=== PATIENT | male | born 1975 | race Caucasian/White ===

== ENCOUNTER 2019-04-06 17:27 | Emergency (ER) | payer SELFPAY ==
[2019-04-06 17:27] VITALS: BP 111/71; PULSE 65; RESP 18; TEMP 36.6; O2SAT 98; BMI 23.6
[2019-04-06] MEDS: Diphth,Pertuss(Acell),Tet Vac 0.5 ML Vial IM (19:05)
--- NOTE | 2019-04-06 19:38 | ED.VIS.UPPEX ---
History of Present Illness Chief Complaint: Laceration Informant: Patient Occurred: Today Mechanism/Context: Incised Current Severity: Mild Maximum Severity: Moderate Worsened by: Not applicable Relieved by: Nothing Associated Symptoms: Parasthesia - Numbness left thumb. Negative for: Weakness, Loss of Funtion Narrative: Patient is a 44-year-old [id number] male presents with laceration volar surface of the left wrist. He, is a numbness in left thumb. Immunizations uncertain. He has no antibiotic allergies. Tetanus Immunization: Unknown Prior similar symptoms: No Recent Illness/Hospitalization: No - Past Medical History (1) No significant past medical history Status: Acute Past Medical History - Allergies and Home Meds Allergies/Adverse Reactions: Allergies No Known Allergies Allergy (Verified 04/06/19 17:32) Primary Care Physician: Care Physician,No Primary [Primary Care Provider] - Smoking Status: Current every day smoker Review of Systems Cardiovascular: Reports: Palpitations. Denies: Chest pain, Heart racing Respiratory: Denies: Dyspnea, Sputum, Dyspnea on exertion Gastrointestinal: Reports: Nausea, Vomiting Musculoskeletal: Denies: Myalgias, Arthralgias, Neck pain, Back pain, Swelling, Extremity Pain Skin: Reports: Wounds. Denies: Rash, Abscess, Abrasions Neurological: Reports: Parasthesia. Denies: Weakness, Numbness Hematologic: Denies: Easy bruising, Easy bleeding Allergy: Denies: Uticaria, Swelling of the mouth, Swelling of the tongue Physical Exam Vital Signs/Narrative: Vital Signs Temp Pulse Resp BP Pulse Ox 04/06/19 17:27 98 F 65 18 111/71 98 Left Humerus: Negative for: Abrasion, Contusion, Deformity, Edema, Hematoma, Limited ROM, - Left Elbow: Negative for: Abrasion, Contusion, Deformity, Edema, Hematoma, Limited ROM, - Left Forearm: - - Is a curvilinear laceration to the retinaculum noted volar surface of left distal forearm/wrist. Negative for: Abrasion, Contusion, Deformity, Edema, Hematoma, Limited ROM Right Wrist: - Left Wrist: Negative for: Abrasion, Contusion, Deformity, Edema, Hematoma, Limited ROM, - - Laceration as previously described Left Hand: Negative for: Abrasion, Contusion, Deformity, Edema, Hematoma, Limited ROM, - Left Finger: Negative for: Abrasion, Contusion, Deformity, Edema, Hematoma, Limited ROM, - General: Well nourished, Well developed Head: Normocephalic, Atraumatic Eyes: Perrl, EOMI. Negative for: Pale conjunctiva, Scleral icterus ENT: No Trauma, Moist Mucous Membranes Neck: Nontender, Full ROM. Negative for: Spinal Tenderness Cardiovascular: Regular rate, Regular rhythm, No murmurs, Normal S1, Normal S2 Respiratory: No distress, CTA bilaterally Rectal: Deferred Skin: No rash, Diaphoresis, Pallor, Trauma. Negative for: Cyanosis, Jaundice, No Trauma Neurological: Alert, Oriented x3, Cranial nerves II-XII grossly intact, Normal Strength, Normal Sensation, - - EDM, radial and ulnar nerve are intact. Patient reports decreased sensation thumb. The laceration is not in the vicinity of the superficial radial nerve. Suspect neuropraxia. Psychological: Normal affect, Normal Mood Diagnostic/Tx/Re-eval - Medical Decision Making She with laceration which will require repair. Patient also claims of numbness to his left thumb. Suspect neuropraxia secondary to blunt trauma. The laceration is not in the vicinity of the superficial sensory radial nerve. The laceration will require repair please read laceration note Procedures - Lacerations No standard instances Length: 0.2 in Depth: Sub Q Prep: Erika Laceration Repair: Foreign material removed, Lidocaine, Local Irrigated (ml): 250 Number of Sutures/Cooper: 6 Suture Information: Ethilon, Simple - Superficial metallic foreign bodies were removed., 4-0 ED Disposition - Plan for ED Patient: Disposition: Home or Assisted Living Diagnosis: Laceration of left forearm with foreign body, Neuropraxia of left upper extremity Instructions: LACERATION, Extrem (Suture, Staple or Tape) Referrals: Care Physician,No Primary [Primary Care Provider] - 10 Day for suture removal Additional Instructions: The numbness in your left thumb may be secondary to contusion to the nerve. May take 4 to 6 weeks to resolve.
[2019-04-06 20:13] VITALS: RESP 16
== END 2019-04-06 20:14 | disposition home or self-care (01) ==
PROVIDERS: Emergency Provider Emergency Medicine
DX: S51.822A Laceration with foreign body of left forearm, initial encounter (principal); S44.92XA Injury of unspecified nerve at shoulder and upper arm level, left arm, initial encounter; R11.2 Nausea with vomiting, unspecified; X58.XXXA Exposure to other specified factors, initial encounter; Y93.9 Activity, unspecified; Y92.9 Unspecified place or not applicable; F17.200 Nicotine dependence, unspecified, uncomplicated
CPT/HCPCS: 12001; 90471; 90715; 99284